=== PATIENT | male | born 2000 | race Caucasian/White ===

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

== ENCOUNTER 2021-10-11 11:25 | Emergency (ER) | payer BC, SELFPAY ==
[2021-10-11 12:21] VITALS: BP 115/73; PULSE 71; RESP 16; TEMP 36.4; O2SAT 98; BMI 20.3
--- NOTE | 2021-10-11 12:27 | HMH.EDUTC ---
[facility] [place] Disposition Clinical Impression: Upper respiratory infection, viral Disposition: Home, Self-Care Condition on Discharge: Good Instructions: DI for Viral Upper Respiratory Infection-Child Additional Instructions: No sign of a bacterial infection. Likely viral. Viruses can take 7-14 days to run their course. Nasal saline and bulb syringe or nose Krys to remove nasal drainage to help with nasal congestion. Hard to eat, drink, sleep with nasal congestion so important to keep this cleaned out. Monitor temp. Tylenol or Motrin as needed for pain or fever Encourage fluids, water, Gatorade, Powerade, Pedialyte if infant/toddler/child Warm salt water gargles Warm fluids Sore throat lozenges Sleep elevated Humidifier/vaporizer Follow-up immediately for new or worsening symptoms or no noticeable improvement over the next 48-72 hours. Referrals: Mihai Lopez [Primary Care Provider] - Time of Disposition: 12:45 Medical Decision Making - Francesco Inquiry Pt receiving controlled substance: No Vital Signs: 10/11/21 12:21 Temperature 97.6 F Temperature Source Temporal Artery Scan Pulse Rate [Left] 71 Respiratory Rate 16 Blood Pressure [Right Arm] 115/73 Blood Pressure Mean [Right Arm] 87 02 Sat by Pulse Oximetry 98 - Lab Data Lab Results 10/11/21 12:12: Influenza Type A Ag Negative, Influenza Type B Ag Negative 10/11/21 12:13: Group A Strep Rapid Negative Orders (Tests/Meds): ORDERS Category Date Time Status Strep Screen Confirmation Stat Micro 10/11/21 12:13 Received [facility] [place] HPI - General Chief complaint: Urgent Treatment Center Stated complaint: fever, lung pain, dizzy, cough, congestion Time Seen by Provider: 10/11/21 12:30 Mode of Arrival: Ambulatory Source of Information: Patient Limitations: No Limitations Description of Symptoms (Recalled from Triage Doc. by RN): pt c/o dizziness, cough and lung inflammation. since last night. HEENT Symptoms (Recalled from RN notes): Yes Resp Symptoms (Recalled from RN notes): Yes Skin Symptoms (Recalled from RN notes): No MS Symptoms (Recalled from RN notes): No Functional Status (Recalled from RN notes): wnl - History of Present Illness Provider Complaint: 20 yr old male presents for cough,sore throat, pain with coughing and congestion - Related Data Previous Rx's Medication Instructions Recorded Amoxicillin [Amoxicillin 500mg Tab] 500 mg PO TID 10 Days #30 tab 09/22/20 Brompheniramine/Pseudoephed/Dm 5 ml PO Q6HP PRN #240 syrup 09/22/20 [Bromfed Dm Cough Syrup] predniSONE [Deltasone 10mg tablet] 10 mg PO BID 3 Days #6 tab 09/22/20 Allergies Allergy/AdvReac Type Severity Reaction Status Date / Time No Known Allergies Allergy Verified 12/27/17 19:52 - Worker's Comp Is this a Worker's Comp case?: No [facility] History - Hepatitis A Screen Drug use history?: No High risk sexual behaviors?: No History of sexually transmitted infection?: No Currently employed?: No Childcare worker?: No Do you have indoor plumbing?: Yes Do you have electricity?: Yes Attestation statement:: This patient has been screened for Hepatitis A risk factors. I have reviewed the patient's past medical history: Yes Medical History: Denies:: Cancer, Diabetes Mellitus Type 1, Diabetes Mellitus Type 2, MRSA Amputation: No - Social History Alcohol Intake: never Occupational Status: student Household Members: family ROS Obtained: Yes Systems reviewed as appropriate & no additional complaints - Constitutional Constitutional: Reports system reviewed and no additional complaints, except as docu, Reports body ache, Denies fever(s) - Eyes Eyes: Reports system reviewed and no additional complaints, except as docu, Denies blurry vision - ENT Ears, Nose, Mouth, and Throat: Reports system reviewed and no additional complaints, except as docu, Reports headache(s), Reports nasal congestion, Reports nasal discharge, Reports sore throat - Cardiovascular Cardi
[2021-10-11 12:34] LABS: UTC Influenza A Antigen Negative (Negative); UTC Influenza B Antigen Negative (Negative)
[2021-10-11 12:42] LABS: Strep Scrn Group A (Rapid) Negative (Negative)
[2021-10-11 12:53] VITALS: BP 115/73; PULSE 71; RESP 16; TEMP 36.4
[2021-10-11 12:56] LABS: Adenovirus,PCR Not Detected (NotDetected); Bordetella Pertussis Not Detected (NotDetected); Chlamydophila Pneumoniae, PCR Not Detected (NotDetected); Coronavirus 19, PCR Not Detected (NotDetected); Coronavirus 229E Not Detected (NotDetected); Coronavirus NL63 Not Detected (NotDetected); Coronavirus OC43 Not Detected (NotDetected); Coronovirus HKU1,PCR Not Detected (NotDetected); Human Metapneumovirus Not Detected (NotDetected); Influenza A, PCR Not Detected (NotDetected); Influenza AH1, 2009 Not Detected (NotDetected); Influenza AH1, PCR Not Detected (NotDetected); Influenza AH3,PCR Not Detected (NotDetected); Influenza B, PCR Not Detected (NotDetected); Mycoplasma Pneumoniae, PCR Not Detected (NotDetected); Parainfluenza 1, PCR Not Detected (NotDetected); Parainfluenza 2, PCR Not Detected (NotDetected); Parainfluenza 3, PCR Not Detected (NotDetected); Parainfluenza 4, PCR Not Detected (NotDetected); Respiratory Syncytial Virus Not Detected (NotDetected); Rhinovirus/Enterovirus Not Detected (NotDetected)
== END 2021-10-11 12:54 | disposition home or self-care (01) ==
PROVIDERS: Emergency Provider Nurse Practitioner Family; PCP Pediatrics
DX: J06.9 Acute upper respiratory infection, unspecified (principal); R42 Dizziness and giddiness; Z20.822 Contact with and (suspected) exposure to COVID-19; Z79.52 Long term (current) use of systemic steroids
CPT/HCPCS: 87430; 87581; 87632; 87798; 87804; 99213; C9803; G0463; U0003; U0005

== ENCOUNTER 2023-06-07 12:44 | Emergency (ER) | payer BC, SELFPAY ==
[2023-06-07 13:05] VITALS: BP 120/70; PULSE 72; RESP 18; TEMP 36.8; O2SAT 98; BMI 20.7
--- NOTE | 2023-06-07 13:47 | EXP.UTC ---
Discharge Plan Disposition Patient Disposition: Home, Self-Care Condition: Good Prescriptions Prescriptions: New brgbhzxgrcdxivw-cunokegtp-VM [Bromfed DM] 2-30-10 mg/5 mL syrup 10 ml PO Q4-6H PRN (Reason: cold symptoms) Qty: 200 0RF Referrals Follow up/Referrals: Mihai Lopez MD [Primary Care Provider] - See instructions Clinical Impressions Clinical Impression: Acute upper respiratory infection Instructions Patient Instructions: DI for Viral Upper Respiratory Infection -- Adult Discharge ED Provider: Gela Melo [facility] General Stated complaint: runny nose, cough, h/a Mode of Arrival: Ambulatory Source of Information: Patient Limitations: No Limitations Time Seen by Provider: 06/07/23 13:46 Description of Symptoms (Recalled from Triage Doc. by RN): PATIENT C/O SINUS CONGESTION AND COUGH X 3 DAYS HEENT Symptoms (Recalled from RN notes): Yes Resp Symptoms (Recalled from RN notes): Yes Skin Symptoms (Recalled from RN notes): No MS Symptoms (Recalled from RN notes): No Functional Status (Recalled from RN notes): WNL History of Present Illness Provider Complaint: Pt reports that he has had sinus congestion and cough for 3 days. He reports that he cleaned a place just before that stirred his sinus's up. Related Data Previous Rx's Medication Instructions Recorded knigeyzmkjednzg-nguogvakulxjnup-TQ 10 ml PO Q4-6H PRN cold symptoms 06/07/23 2 mg-30 mg-10 mg/5 mL oral syrup #200 mL (Bromfed DM) Allergies Allergy/AdvReac Type Severity Reaction Status Date / Time No Known Allergies Allergy Verified 12/27/17 19:52 Worker's Comp Is this a Worker's Comp case?: No [facility] Disclaimer: The information contained in this section may have been updated after the patient was seen, as this information can be updated by other users. Medical History (Updated 06/07/23 @ 14:00 by Gela Melo APRN) No significant past medical history Social History Smoking Status: Never smoker alcohol intake: never current occupational status: student Travel in the last 8 weeks: None household members: family ROS Obtained: Yes All systems reviewed & no additional complaints except as documented Constitutional Constitutional: Reports system reviewed and no additional complaints, except as documented and Reports malaise Eyes Eyes: Reports system reviewed and no additional complaints, except as documented ENT Ears, Nose, Mouth, and Throat: Reports system reviewed and no additional complaints, except as documented, Reports nasal congestion and Reports nasal discharge Cardiovascular Cardiovascular: Reports system reviewed and no additional complaints, except as documented Respiratory Respiratory: Reports system reviewed and no additional complaints, except as documented and Reports cough Gastrointestinal Gastrointestingal: Reports system reviewed and no additional complaints, except as documented Genitourinary Male Genitourinary: Reports system reviewed and no additional complaints, except as documented Musculoskeletal Musculoskeletal: Reports system reviewed and no additional complaints, except as documented and Reports myalgias Comments: states that left side hurt with coughing Integumentary/Breasts Skin/Breast: Reports system reviewed and no additional complaints, except as documented Neurologic Neurologic: Reports system reviewed and no additional complaints, except as documented Endocrine Endocrine: Reports system reviewed and no additional complaints, except as documented Hematologic/Lymphatic Henatologic/Lymphatic: Reports system reviewed and no additional complaints, except as documented Allergic/Immunologic Allergic/Immunologic: Reports system reviewed and no additional complaints, except as documented Physical Exam General General appearance: alert and in no apparent distress Head Head exam: atraumatic and normocephalic Eye Eye exam: Present normal appearance Expanded ENT Exam Exter
[2023-06-07 14:02] VITALS: BP 120/70; PULSE 72; RESP 18; TEMP 36.8; O2SAT 98
== END 2023-06-07 14:07 | disposition home or self-care (01) ==
PROVIDERS: Emergency Provider Nurse Practitioner Family; PCP Pediatrics
DX: R05.9 Cough, unspecified (principal); J06.9 Acute upper respiratory infection, unspecified; R51.9 Headache, unspecified; R09.81 Nasal congestion; B34.9 Viral infection, unspecified
CPT/HCPCS: 99212; 99214; G0463

== ENCOUNTER 2023-12-22 11:42 | Emergency (ER) | payer BC, SELFPAY ==
[2023-12-22 12:40] VITALS: BP 110/71; PULSE 62; RESP 18; TEMP 36.9; O2SAT 96; BMI 21.3
--- NOTE | 2023-12-22 13:26 | ED_ITS ---
Discharge Plan Disposition Patient Disposition: Home, Self-Care Condition: Good Prescriptions Prescriptions: New fluticasone propionate [Flonase Allergy Relief] 50 mcg/actuation spray,suspension 1 spray intranasal DAILY Qty: 16 0RF Rx Instructions: administer into each nostril twice daily for a week and then once a day. Referrals Follow up/Referrals: Mihai Lopez MD [Primary Care Provider] - See instructions Clinical Impressions Clinical Impression: Dysfunction of eustachian tube Qualifiers: Laterality: bilateral Qualified Code(s): H69.93 - Unspecified Eustachian tube disorder, bilateral Instructions Patient Instructions: DI for Eustachian Tube Dysfunction-Adult Discharge ED Provider: Gela Melo [facility] General Stated complaint: right ear pain Mode of Arrival: Ambulatory Source of Information: Patient Limitations: No Limitations Time Seen by Provider: 12/22/23 13:07 Description of Symptoms (Recalled from Triage Doc. by RN): Pt's symptoms are right ear pain. HEENT Symptoms (Recalled from RN notes): Yes Resp Symptoms (Recalled from RN notes): No Skin Symptoms (Recalled from RN notes): No MS Symptoms (Recalled from RN notes): No Functional Status (Recalled from RN notes): n/a History of Present Illness Provider Complaint: Pt reports that he has had right ear pain off and on for the last 3 weeks. He denies any treatment. Related Data Previous Rx's Medication Instructions Recorded fluticasone propionate 50 1 spray intranasal DAILY #16 grams 12/22/23 mcg/actuation nasal spray,suspension (Flonase Allergy Relief) Allergies Allergy/AdvReac Type Severity Reaction Status Date / Time No Known Allergies Allergy Verified 12/22/23 13:01 Worker's Comp Is this a Worker's Comp case?: No [facility] Disclaimer: The information contained in this section may have been updated after the patient was seen, as this information can be updated by other users. Medical History (Updated 12/22/23 @ 13:28 by Gela Melo APRN) No significant past medical history Social History Smoking Status: Never smoker alcohol intake: never current occupational status: student Travel in the last 8 weeks: None household members: family ROS Obtained: Yes All systems reviewed & no additional complaints except as documented Constitutional Constitutional: Reports system reviewed and no additional complaints, except as documented Eyes Eyes: Reports system reviewed and no additional complaints, except as documented ENT Ears, Nose, Mouth, and Throat: Reports system reviewed and no additional complaints, except as documented and Reports otalgia Cardiovascular Cardiovascular: Reports system reviewed and no additional complaints, except as documented Respiratory Respiratory: Reports system reviewed and no additional complaints, except as documented Gastrointestinal Gastrointestingal: Reports system reviewed and no additional complaints, except as documented Genitourinary Male Genitourinary: Reports system reviewed and no additional complaints, except as documented Musculoskeletal Musculoskeletal: Reports system reviewed and no additional complaints, except as documented Integumentary/Breasts Skin/Breast: Reports system reviewed and no additional complaints, except as documented Neurologic Neurologic: Reports system reviewed and no additional complaints, except as documented Endocrine Endocrine: Reports system reviewed and no additional complaints, except as documented Hematologic/Lymphatic Henatologic/Lymphatic: Reports system reviewed and no additional complaints, except as documented Physical Exam General General appearance: alert and in no apparent distress Head Head exam: atraumatic and normocephalic Eye Eye exam: Present normal appearance ENT ENT exam: Present mucous membranes moist Expanded ENT Exam External ear exam: Present normal external inspection TM/Canal exam: Bilateral TM: effusion Nose exam: Absent sinus tenderness Nasal speculum exam: Bilateral: normal Mouth exam: Present normal external inspection Teeth exam: Present normal inspection Throat exam: Present normal inspection Neck Neck exam: Present normal inspection; Absent lymphadenopathy Chest Chest inspection: Present normal inspection Respiratory Respiratory exam: Present normal lung sounds bilaterally Cardiovascular Cardiovascular exam: Present regular rate, normal rhythm and normal heart sounds Abdominal Exam Abdominal exam: Present soft and normal bowel sounds Extremities Exam Extremities exam: Present normal inspection Back Exam Back exam: Present normal inspection Neurological Exam Neurological exam: Present alert Psychiatric Psychiatric exam: Present normal affect and normal mood Skin Skin exam: Present warm, dry and intact Lymphatic Lymphatic Findings: no adenopathy Medical Decision Making Francesco Inquiry Pt receiving controlled substance: No Francesco was queried for this patient: No Vital Signs: 12/22/23 12:40 Temperature 98.4 F Temperature Source Oral Pulse Rate [Right Radial] 62 Respiratory Rate 18 Blood Pressure [Right Arm] 110/71 Blood Pressure Mean [Right Arm] 84 Blood Pressure Source [Right Arm] Automatic Cuff Blood Pressure Position [Right Arm] Sitting 02 Sat by Pulse Oximetry 96 Oxygen Delivery Method Room Air
[2023-12-22 13:42] VITALS: BP 110/71; PULSE 62; RESP 18; TEMP 36.9; O2SAT 96
== END 2023-12-22 13:42 | disposition home or self-care (01) ==
PROVIDERS: Emergency Provider Nurse Practitioner Family; PCP Pediatrics
DX: H69.93 Unspecified Eustachian tube disorder, bilateral; H92.01 Otalgia, right ear
CPT/HCPCS: 99212; 99214; G0463

== ENCOUNTER 2024-11-09 09:30 | Outpatient (CLI) | payer BC, SELFPAY ==
--- NOTE | 2024-11-09 09:35 | XR_ITS ---
FINAL REPORT CLINICAL HISTORY: .shoulder pain....gertting worse last year FINDINGS: RIGHT SHOULDER 2 views demonstrate no acute fracture or dislocation. The visualized joint spaces are normally aligned. The soft tissues are unremarkable. IMPRESSION: No acute process. Reviewed, Interpreted and Dictated by Mirza Rivers MD Transcribed by Mile Cuevas Authenticated and [facility]
== END 2024-11-09 23:59 | disposition home or self-care (01) ==
LOC: RAD 09:31
PROVIDERS: Visit Provider Physician Assistant Surgical
DX: M25.511 Pain in right shoulder (principal)
CPT/HCPCS: 73030

== ENCOUNTER 2024-11-18 13:43 | Outpatient (CLI) | payer BC, SELFPAY ==
--- NOTE | 2024-11-18 13:45 | MR_ITS ---
FINAL REPORT CLINICAL HISTORY: Rt Shoulder Pain and stiffness COMPARISON: None FINDINGS: MRI RIGHT SHOULDER WITH AND WITHOUT CONTRAST: Bone marrow: No evidence of bone marrow edema is identified. Glenohumeral joint: Unremarkable Acromioclavicular joint: Unremarkable Labrum: No evidence of labral tear. Rotator cuff: No evidence of rotator cuff tear. Biceps tendon: Unremarkable. No enhancement is noted after intravenous contrast administration, and no masses identified. IMPRESSION: Unremarkable MRI of the right shoulder. Specifically, no enhancement is noted after intravenous contrast administration, and no focal masses are identified. Reviewed, Interpreted and Dictated by Macie Magaña MD Transcribed by Charito Chowdhury Authenticated and [facility]
[2024-11-18] MEDS: GADOTERIDOL INJ 20ML SYRINGE 14 ML IV (15:41)
[2024-11-18] MEDS: SODIUM CHLORIDE 0.9% 10ML SYR (RAD ONLY) 10 ML IV (15:41)
== END 2024-11-18 23:59 | disposition home or self-care (01) ==
PROVIDERS: PCP Pediatrics; Visit Provider Physician Assistant Surgical
DX: M25.511 Pain in right shoulder (principal)
CPT/HCPCS: 73223; A9576

== ENCOUNTER 2024-12-15 15:00 | Outpatient (RCR) | payer BC, SELFPAY | END 2024-12-15 23:59 | disposition home or self-care (01) | LOC: OT 15:00 | PROVIDERS: PCP Pediatrics; Visit Provider Physician Assistant Surgical | DX: M25.511 Pain in right shoulder (principal) | CPT/HCPCS: 97014; 97110; 97140; 97166; 97530; G0283 ==